=== PATIENT | male | born 1975 | race Caucasian/White ===

== ENCOUNTER 2018-01-07 18:06 | Observation (INO) ==
--- NOTE | 2018-01-07 20:35 | Emergency Department Note ---
Disposition Clinical Impression: Neck pain, Retropharyngeal abscess, Trapezius muscle spasm Disposition: Admitted As Inpatient Condition: Good Time of Disposition: 21:30 General Adult HPI - General Chief complaint: ED Neck Pain/Injury Stated complaint: "Neck stiff/pain" Time Seen by Provider: 01/07/18 18:39 Source: patient Mode of arrival: ambulatory Limitations: no limitations Nursing Notes Reviewed: Yes Vital Signs Reviewed: Yes - History of Present Illness HPI Narrative: 42 year old man with insignificant pmh who presented to the ED with neck pain and stiffness. He was seen in urgent care today and told to come here. He has had neck pain he describes as dull for the past 3-4 weeks that progressed to be severe the last 3 days. He has radiation that occurs occipitally but not down back. He has neck stiffness/muscle tightness with inability to turn his head laterally more than about ~[address] Additionally he has difficulty with opening his mouth and has pain with swallowing. He has had this happen for many years which he said occurs 1x/yr. When has occurred in the past he has been able to get a massage and it will resolve for a year. He has tried ibuprofen and muscle relaxers from previous rx without relief. Pt Subjective Complaint: neck pain/stiffness Onset (ago): day(s) Location: other (neck) Radiation: other (occipital region head ) Pain Scale: 7 Quality: burning, dull Consistency: constant Improves with: nothing Worsens with: movement Associated symptoms: Reports: headaches Treatments Prior to Arrival: NSAID, other (muscle relaxers. ) - Related Data Home Medications Medication Instructions Recorded Confirmed Ibuprofen 01/07/18 Robaxin 01/07/18 Allergies Allergy/AdvReac Type Severity Reaction Status Date / Time codeine Allergy See Verified 10/01/16 19:06 Comments All systems ED: reviewed and negative except as stated. Constitutional: Denies: fever, chills, weakness, night sweats Eyes: Denies: eye pain, vision change ENT ED: Reports: throat pain Cardiovascular: Denies: chest pain, syncope Respiratory: Denies: cough, dyspnea Gastrointestinal: Denies: abdominal pain, nausea, vomiting Musculoskeletal: Reports: neck pain. Denies: back pain Neurological: Reports: headache. Denies: weakness, numbness, paresthesias, confusion, abnormal gait, vertigo Psychiatric: Reports: depression Past Medical History - Past Medical History Medical history: Reports: other Surgical history: Reports: tonsilectomy Psychiatric history: Reports: anxiety, depression - Social History Smoking Status: Never smoker Smokeless Tobacco Status: No Alcohol use: Reports: occasionally Drug use: Reports: none Physical Exam - General Limitations: no limitations General appearance: alert - Head Head exam: atraumatic, normocephalic, normal inspection - Eye Eye exam: Present: normal appearance, PERRL, EOMI - ENT ENT exam: mucous membranes moist - Neck Neck exam: Present: trachea midline, tenderness, other (tender to palpation throughout c spine. Paraspinal and trapezious tender and very tight R>L, no tenderness of bilateral mastoid. ). Absent: full ROM, meningismus, lymphadenopathy - Expanded Lower Extremity Exam Neurovascular/Tendon exam: Present: normal fine/light touch - Neurological Exam Neurological exam: Present: alert, oriented X3, CN II-XII intact - Psychiatric Psychiatric exam: Present: normal affect - Skin Skin exam: Present: warm, dry, intact, normal color Course Course Narrative: Presents to ED with neck pain/muscle tightness that has been progressing over the last 3 days. Decreased ROM with very tight trapezius bilaterally. No signs of infection/meningitis, trauma, neuro symptoms present. Previously massage worked when similar symptoms developed. Soft tissue CT in setting of odynophagia. Will try occipital nerve block bilaterally now. 0020: No relief with occipital nerve block. 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 Phlegmon with early retropharyngeal abscess within the differential diagnosis but considered less likely. Incidentally noted mass within the oral cavity, probably representing a piece of gum. Clinically correlate. Moderate to severe right mastoid effusion. Chewing tobacco was in mouth during CT. ENT was called for concern of retropharyngeal abscess with Dr Murray reviewing CT scan. She plans to evaluate him tomorrow and possibly scope him. R mastoid process non tender to palpation. Will give zosyn, pain meds and steroids, admit to hospitalist service who accepted. Vital Signs Temperature 98.1 F 01/07/18 18:20 Pulse Rate 92 01/07/18 18:20 Respiratory Rate 16 01/07/18 18:20 Blood Pressure 148/94 01/07/18 18:20 O2 Sat by Pulse Oximetry 96 10/08/18 18:20 Temperature 98.1 F 10/08/18 18:33 Pulse Rate 95 01/07/18 18:37 Respiratory Rate 18 01/07/18 18:37 Blood Pressure 134/96 01/07/18 18:37 O2 Sat by Pulse Oximetry 97 01/07/18 18:37 Oxygen Delivery Oxygen Delivery Room Air
[2018-01-07] MEDS ORDERED: Lidocaine -MPF 2% 5 ML VIAL INFILT ONE (21:00)
[2018-01-07] MEDS ORDERED: Isovue-370 500 ML INFUS..BTL IV ONE (22:37)
[2018-01-08] MEDS ORDERED: Piperacillin/Tazobactam 3.375 GM in 0.9 % Sodium Chloride Mini Bag 100 ML IVPB ONE (00:02)
[2018-01-08] MEDS ORDERED: Dexamethasone 4 MG/ML VIAL IVP ONE (00:03)
[2018-01-08] MEDS ORDERED: *HR* FentaNYL (PF) 100 MCG/2 ML VIAL IVP ONE (00:25)
[2018-01-08] MEDS ORDERED: Ketamine *HR* 20 MG in 0.9 % Sodium Chloride 100 ML IVPB ONE (00:26)
[2018-01-08 01:06] LABS: Hematocrit 43.5 % (37.5-50.1); Hemoglobin 15.3 g/dL (12.9-16.9); Mean Corpuscular HGB Conc 35.2 g/dL (31.6-35.5); Mean Corpuscular Hemoglobin 31.2 pg (28.0-33.3); Mean Corpuscular Volume 88.6 fL (83.0-100.0); Mean Platelet Volume 9.7 fL (9.4-12.4); Platelet Count 222 K/mcL (140-400); Red Blood Count 4.91 M/mcL (4.19-5.50); Red Cell Distribution Width 12.2 % (11.5-14.5)
[2018-01-08 01:30] LABS: BUN/Creatinine Ratio 13 (6-26); Blood Urea Nitrogen 10 mg/dL (6-20); Calcium 9.8 mg/dL (8.6-10.3); Carbon Dioxide 26 mEq/L (23-29); Chloride 100 mEq/L (98-107); Glucose 133 mg/dL (70-105); Osmolality,Calculated 281 (280-300); Potassium 3.9 mEq/L (3.5-5.1); Sodium 135 mEq/L (136-145); eGFR For Non-African Americans > 60 (> 60)
--- NOTE | 2018-01-08 01:45 | Emergency Department Note ---
Disposition Clinical Impression: Neck pain, Retropharyngeal abscess, Trapezius muscle spasm Disposition: Admitted As Inpatient Condition: Good General Adult HPI - General Chief complaint: ED Neck Pain/Injury Stated complaint: "Neck stiff/pain" Time Seen by Provider: 01/07/18 18:39 Source: patient Mode of arrival: ambulatory Limitations: no limitations - History of Present Illness Location: other (neck) Pain Scale: 7 Quality: burning, dull Improves with: nothing Worsens with: movement Associated symptoms: Reports: headaches Treatments Prior to Arrival: NSAID, other (muscle relaxers. ) - Related Data Allergies Allergy/AdvReac Type Severity Reaction Status Date / Time codeine Allergy See Verified 10/01/16 19:06 Comments Constitutional: Denies: fever, chills, weakness, night sweats Eyes: Denies: eye pain, vision change ENT ED: Reports: throat pain Cardiovascular: Denies: chest pain, syncope Respiratory: Denies: cough, dyspnea Gastrointestinal: Denies: abdominal pain, nausea, vomiting Musculoskeletal: Reports: neck pain. Denies: back pain Neurological: Reports: headache. Denies: weakness, numbness, paresthesias, confusion, abnormal gait, vertigo Psychiatric: Reports: depression Past Medical History - Past Medical History Medical history: Reports: other Surgical history: Reports: tonsilectomy Psychiatric history: Reports: anxiety, depression - Social History Smoking Status: Never smoker Smokeless Tobacco Status: No Alcohol use: Reports: occasionally Drug use: Reports: none Physical Exam - General Limitations: no limitations General appearance: alert Course Vital Signs Temperature 98.1 F 01/07/18 18:20 Pulse Rate 92 01/07/18 18:20 Respiratory Rate 16 01/07/18 18:20 Blood Pressure 148/94 01/07/18 18:20 O2 Sat by Pulse Oximetry 96 01/07/18 18:20 Temperature 98.1 F 01/07/18 18:33 Pulse Rate 95 01/07/18 18:37 Respiratory Rate 18 01/08/18 01:29 Blood Pressure 150/92 01/08/18 01:29 O2 Sat by Pulse Oximetry 97 01/07/18 18:37 Oxygen Delivery Oxygen Delivery Room Air Medical Decision Making - Lab Data Result diagrams: 01/08/18 00:54 01/08/18 00:54 Attestation Statement - Attestation Attestation: I examined this patient and my medical decision-making was reviewed with the Resident Physician. I agree with the documented findings, disposition and treatment plan as described except to the extent set forth below. I was present and available for Dr. Gallardo's greater occipital nerve block. Procedure was ineffective at treating the patient's pain. Our medical student performed osteopathic manipulative therapy without relief of the patient's symptoms. We are considering discharge, but it was at this point that I got the history of odynophagia which I was not aware of previously. After further conversation with the patient, we decided to proceed with IV contrast enhanced soft tissue CT of the neck to assess for the possibility of retropharyngeal abscess. CT results were discussed in detail with Dr. Murray from ENT. While radiographically there does not appear to be a retropharyngeal abscess, although it cannot be completely ruled out, his clinical presentation is much more consistent with retropharyngeal abscess tenderness with calcific peritendinitis of the paraspinal musculature. Based on this history, Dr. Murray and I agreed on a course of IV antibiotics and IV steroids with overnight observation and an evaluation by her in the morning. She said that she will decide at that point whether to do a scope, repeat his CT scan, or send the patient home. This was discussed in detail with the patient and his , who were in agreement.
[2018-01-08] MEDS ORDERED: Naloxone 0.4 MG/ML INJ IVP PRN (05:27)
[2018-01-08] MEDS ORDERED: Acetaminophen 325 MG TABLET PO PRN (05:27)
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
[2018-01-08 07:02] LABS: Basophils % 0.1 %; Hemoglobin 15.5 g/dL (12.9-16.9); Immature Granulocytes % 0.2 % (0-4); Lymphocytes # 0.7 K/mcL (0.6-4.6); Lymphocytes % 7.1 %; Mean Corpuscular HGB Conc 35.2 g/dL (31.6-35.5); Mean Corpuscular Hemoglobin 30.9 pg (28.0-33.3); Mean Corpuscular Volume 87.8 fL (83.0-100.0); Mean Platelet Volume 10.3 fL (9.4-12.4); Monocytes # 0.1 K/mcL (0.0-1.3); Monocytes % 1.3 %; Neutrophils # 8.7 K/mcL (1.6-8.9); Platelet Count 227 K/mcL (140-400); Red Blood Count 5.01 M/mcL (4.19-5.50); Red Cell Distribution Width 12.2 % (11.5-14.5); Segmented Neutrophils % 91.3 %
[2018-01-08] MEDS ORDERED: Clindamycin 600 MG/50 ML 600 MG/50 ML IV.SOLN IVPB SCH (08:00)
[2018-01-08 10:53] VITALS: BP 133/86
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
[2018-01-08] MEDS ORDERED: Ampicillin/Sulbactam 3,000 MG in 0.9 % Sodium Chloride Mini Bag 100 ML IVPB SCH (12:00)
--- NOTE | 2018-01-08 12:00 | ENT - Procedure Note ---
Date of procedure: 01/08/18 Procedure: Procedure: Laryngoscopy, flexible fiberoptic; diagnostic, CPT: 80118 Preoperative diagnosis: Abnormal CT, Possible retropharyngeal abscess Postoperative diagnosis: normal larynx Indication and consent: Patient is a 42-year-old gentleman that presented to the ER secondary to significant neck pain. CT was obtained by the emergency room staff. I was contacted urgently secondary to possible mandibular mass as well as a small fluid collection on the CT and the retropharyngeal area. Despite no abscess on my review of the scan, I was asked to see this patient. Flexible laryngoscopy was performed to clinically assess for abscess and again direct visualization of the area in question. Risks, benefits, alternatives to the procedure were discussed with the patient the bedside, verbal consent was obtained in flexible scope was performed. Flexible laryngoscopy: Procedure was explained to the patient at the bedside verbal consent was obtained. Bilateral nares are sprayed with a 50-50 mixture of oxymetazoline and topical lidocaine. Time was given to allow anesthesia as well as decongestion of the nasal airway. Flexible laryngoscope was then advanced into the right naris. Nasal mucosa was dry and atrophic. Scope was further advanced, nasopharynx was within normal limits, tongue base was normal without mass or lesion, epiglottis was normal, piriform sinuses were open without mass or obstruction. True vocal cords had normal mobility but atrophic in appearance. Good glottic opening with full AB duction of the vocal cords bilaterally. Subglottis showed no obstruction.There is no mass, no compression , no narrowing of the hypopharynx or larynx. Airway widely pain. Scope was removed. Patient tolerated this procedure well. Overall assessment shows normal larynx without any evidence of retropharyngeal abscess Anesthesia: topical Surgeon: Milvia Murray Was there an pet care assistant present: No Estimated blood loss (cc): 0 Specimens collected: none Condition: stable
--- NOTE | 2018-01-08 13:44 | Discharge Summary ---
- NOTES TO OUTPATIENT PROVIDER Notes to Outpatient Provider: PCP in 5 to 7 days. 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 Overall assessment of flex laryngoscope showed normal larynx without evidence of retropharyngeal abscess. Patient started on 1 dose Zosyn and 1 dose dexamethasone in ED. Will DC on prednisone taper per ENT recommendation. was on Clindamycin 600mg IVPB q8Hrs but will DC since above work up negative. ENT recommends patient follow up with outpatient sports medicine for further evaluation. All questions answered. (2) Neck pain Priority: Primary Status: Acute Assessment and Plan: Patient with chronic intermittent neck pain CT did not demonstrate acute spinal pathology Plan Tylenol for pain control (3) Tobacco abuse Priority: Secondary Status: Acute Assessment and Plan: Patient admits to use of chewing tobacco Plan Cessation counseling Hospital course: Mr. Shultz is a 42 year old male who denies any past medical history who presents to the ED with complaint of neck pain. CT was obtained while patient was in ER. ENT was consulted for possible mandibular mass and concern for possible retropharyngeal anbscess, due to a small fluid collection on the CT in the retropharyngeal area. Patient reports his symptoms began approximately 4 days ago. Patient denies any head or neck trauma, any recent heavy lifting, any recent URIs, any nasal or postnasal drainage, or any recent fevers. Patient does report head trauma that occurred greater than 1 year ago. Patient states neck pain began posteriorly and then began to radiate to the right lateral side of his neck. He reported he began having associated odynophagia a few days after initial pain began. He denies any symptoms of dysphagia, hoarseness, or any other changes in his voice. He denies any shortness of breath, stridor, or difficulty controlling his secretions. He also denies any symptoms of otalgia. Discharge discussed with: patient - Time Spent with Patient Total time spent providing and/or coordinating discharge services: Less than 30 minutes - Discharge Medications Home Medications: methylPREDNISolone [Medrol] 4 mg PO DAILY #21 tablet 01/08/18 [Rx] Allergies/Adverse Reactions: 3 Allergy/AdvReac Type Severity Reaction Status Date / Time codeine Allergy See Verified 10/01/16 19:06 Comments Date of admission: 01/08/18 00:34 Primary care physician: PCP NONE Consults: 01/08/18 06:18 Consult to ENT [CONS] Routine Consulting Provider: ENT Madeline Reason for Consult: possible retropharyngeal abscess Call Completed: No Discharging clinician: Gayathri Alfonso Anticipated date of discharge: 01/08/18 - Constitutional Vitals: Temp Pulse Resp BP Pulse Ox 97.6 F 59 17 133/86 96 01/08/18 10:52 01/08/18 10:52 01/08/18 10:52 01/08/18 10:52 01/08/18 10:52 Exam: Exam: Patient in no acute distress, alert and oriented 3 Cranial nerves II through XII intact There is no swelling of the lips or tongue, no erythema or edema visualized in the oropharynx Right side of the neck is erythematous however believe that is from the patient rubbing it Neck tender to palpation on the right and posteriorly Patient is able to rotate the neck to approximately 60 degrees bilaterally with approximately 60 degrees of flexion and extension Heart in regular rate and rhythm without murmur or gallop Lungs clear to auscultation bilaterally without wheeze or rhonchi Abdomen soft and non-tender with normal bowel sounds present Bilateral lower extremities non-edematous Skin warm and dry - Patient Status Disposition: Home, Self-Care Condition: Good Overall status at discharge: patient is back to baseline - Discharge Instructions Follow Up With: Sarah Carbajal DO [Partnered Physician] - 01/15/18 2:00 pm NONE,PCP [Primary Care Provider] - - Diet and Activity Activity: increase activity as tolerated Diet: regular diet
== END 2018-01-08 14:17 | disposition home or self-care (01) ==
LOC: EMEROOARM 18:06 → 3BNU 18:06
PROVIDERS: ADMIT Family Medicine; ATTEND Family Medicine